=== PATIENT | male | born 1995 | race Caucasian/White ===

== ENCOUNTER 2016-09-03 13:11 | Inpatient (IN) | payer OTHER ==
[~2016-09-03] VITALS: Ht 185.4 cm; Wt 66.3 kg
--- NOTE | 2016-09-03 14:10 | DIAGNOSTIC IMAGING REPORT ---
PROCEDURE: XR CHEST 2 VIEW INDICATION: SHORTNESS OF BREATH TECHNIQUE: PA and lateral views. COMPARISON: None available FINDINGS: Diffuse bilateral pulmonary infiltrates. Heart and mediastinum are normal. Thorax is normal. IMPRESSION: 1. Diffuse bilateral pulmonary infiltrates.
--- NOTE | 2016-09-03 16:31 | DIAGNOSTIC IMAGING REPORT ---
PROCEDURE: CTA THORAX WITH CONTRAST INDICATION: Shortness of breath times 1 week TECHNIQUE: 80 ml of Isovue 370 was injected intravenously and axial images were obtained of the entire thorax with 3D sagittal and coronal MIP reconstructions. COMPARISON: Chest x-ray 09/03/2016 FINDINGS: Somewhat suboptimal opacification of the pulmonary arteries with some breathing artifacts. There is decreased filling of some of the left lower lobe pulmonary artery branches, probably due to artifacts rather than small emboli. Dense consolidation in the posterior aspect of both upper lobes and superior segments of both lower lobes suspicious for aspiration pneumonia. There are also multiple rounded opacities, primarily in the right middle and right lower lobes suspicious for pulmonary emboli. No cavitating lesions. Tiny bilateral pleural effusions. Moderate anterior mediastinal, subcarinal and bilateral hilar adenopathy, reactive. Normal thoracic aorta without dissection or aneurysm. Normal heart size and there is no pericardial effusion. Left renal cysts. Bones are unremarkable. IMPRESSION: 1. Suboptimal opacification of some of the left lower lobe pulmonary branches, likely secondary to artifacts. Pulmonary emboli are less likely 2. Extensive bilateral infiltrates suggestive of aspiration pneumonia 3. Multiple rounded pulmonary opacities suspicious for septic emboli 4. Tiny bilateral pleural effusions
--- NOTE | 2016-09-03 17:27 | ED CLINICAL REPORT ---
Clinical Report - Physicians/Mid Levels [facility] [address] [place] [address] 09/03/2016 13:12 Patient: LAURA KNOTT Time Seen: 13:34; initial patient contact. Arrived- By private vehicle. Historian- patient. HISTORY OF PRESENT ILLNESS Chief Complaint: COUGH. This started about 1 week ago and is still present and worsening. It was gradual in onset and has been constant. The illness is described as moderate. The patient has had a cough, chest discomfort, difficulty breathing, fever and chills. No sputum production, chest pain, muscle aches or nasal congestion or discharge. Additional history - No known contact with a sick individual. No recent travel. Similar symptoms previously: None. Recent medical care: Not recently seen/assessed. REVIEW OF SYSTEMS No headache, nausea, vomiting or diarrhea. All systems otherwise negative, except as recorded above. PAST HISTORY Laceration. SURGERIES: Splenectomy. Medications: None. Allergies: None. SOCIAL HISTORY Current every day smoker. History of IV drug use: heroin, methamphetamines. No alcohol use. No recent travel. ADDITIONAL NOTES The nursing notes have been reviewed with agreement regarding the chief complaint, PMH and patient medications and allergies. PHYSICAL EXAM Vital Signs: 09/03/2016 13:22 BP: 94/61. HR: 121. RR: 18. O2 saturation: 96%. Temp: 99 F. Pain level now: 7/10. Have been reviewed. Hypotensive. Tachycardic. Respiratory rate normal. Temperature normal. Oxygen saturation normal. Appearance: Alert. No acute distress. Eyes: No scleral icterus or pale conjunctivae. ENT: Dry mucous membranes present. CVS: Normal heart rate and rhythm. Heart sounds normal. Respiratory: Mild respiratory distress with accessory muscle use. Moderate bilateral rhonchi present diffusely. Mild rales present diffusely in both lungs. No wheezes or prolonged expiration. Abdomen: Soft and nontender. Skin: Skin warm and dry. Normal skin color. No rash. Extremities: No lower extremity edema. Neuro: Oriented X 3. LABS, X-RAYS, AND EKG Chest X-ray: Diffuse infiltrate in the right upper lobe, right middle lobe and right lower lobe and left upper lobe and left lower lobe. Consistent with pneumonia. Normal heart size. Mediastinum normal. Great vessels normal. Views: PA and lateral. Technique: good. The X-rays were independently viewed by me and interpreted contemporaneously by me. Prior films were not available for comparison. Interpretation time: 14:30. Laboratory Tests: CBC w Diff: (TALIB: 09/03/2016 14:11) ( [facility] [place] 09/03/2016 14:19) Final results Test Result Flag Units (Reference) WHITE BLOOD COUNT 21.6 H K/uL (4.5-11.5) RED BLOOD COUNT 4.56 M/uL (4.50-5.90) HEMOGLOBIN 13.7 gm/dL (13.5-17.5) HEMATOCRIT 41.5 % (41.0-53.0) MEAN CELL VOLUME 91 fL (80-100) MEAN CORPUSCULAR HGB 30 pg (26-34) MEAN CORPUSCULAR HGB CONC 33 g/dL (31-37) RED CELL DISTRIBUTION WIDTH 12.6 % (11.6-14.8) PLATELET COUNT 394 K/uL (150-400) NEUTROPHIL % 77.9 H % (50-75) LYMPH % 9.5 L % (25-40) MONO % 12.4 % (3-14) EOSINOPHIL % 0 % (0-4) BASOPHIL % 0.2 % (0-2) [id number]: (TALIB: 09/03/2016 14:11) ( [facility] 09/03/2016 15:09) Final results Test Result Flag Units (Reference) D-DIMER QUANTITATIVE 4.65 *H ug/mLFEU (0.27-0.52) CRITICAL RESULTS CALLEDCalled to BARTOLOME NAQVI RN 09/03/16 1509Were 2 patient identifiers used? YWas the result read back? YThe primary value of this quantitative assay relates toits negative predictive value (i.e. exclusion) of pulmonaryembolism/deep vein thrombosis/DIC.Elevated levels of d-dimer may also occur with:, age, cancer, inflammation, liver disease,post-op, infection, hematoma, coronary disease, peripheralarteriopathy, bleeding disorders and thrombolytic treatment.Results should be correlated with other clinical andradiological data.Testing Methodology: Latex Immunoassay [id number]: (TALIB: 09/03/2016 14:25) ( MsgRcvd 09/03/2016 15:07) Final results Test Result Flag Units (Reference) LACTIC ACID SEPSIS PROTOCOL 1.0 mmol/L (0.4-2.0) [id number]: (TALIB: 09/03/2016 14:11) ( MsgRcvd 09/03/2016 15:13) Final results Test Result Flag Units (Reference) HIV-1 P24 ANTIGEN NEGATIVE (NEGATIVE) HIV-1 AND OR HIV-2 ANTIBODY NEGATIVE (NEGATIVE) PROCALCITONIN 0.9 H ng/mL (0-0.5) PCT Concentration: Interpretation : Risk/option for action PCT <=0.5 ng/mL : Systemic : Low risk forinfection(sepsis): progression to severeis not likely. : systemic infection.Local bacterial : CAUTION-PCT levelsinfection is : below 0.5 ng/mL do notpossible. : exclude an infection,because localizedinfections (withoutsystemic signs) may beassociated with suchlow levels. If PCT ismeasured very earlyafter a bacterialchallenge (usually <6hours), these valuesmay still be low. Inthis case PCT shouldbe re-assessed 6-24hours later. PCT >0.5 and : Systemic infection: Moderate risk for<= 2 ng/mL : (sepsis) is : progression to severepossible, but : systemic infection.other conditions : The patient should beare known to : closely monitoredelevate PCT. : both clinically andby re-assessing PCTwithin 6-24 hours. PCT > 2 ng/mL : Systemic infection: High risk for(sepsis) is likely: progression to severeunless other : systemic infection.causes are known. : PCT >= 10 ng/mL : Important systemic: High likelihood ofinflammatory : severe sepsis orresponse, almost : septic shock.exclusively due to:severe bacterial :sepsis or septic :shock. : CMP: (TALIB: 09/03/2016 14:11) ( MsgRcvd 09/03/2016 14:36) Final results Test Result Flag Units (Reference) GLUCOSE 117 H mg/dL (70-110) BUN 5 L mg/dL (7-18) CREATININE 0.7 mg/dL (0.6-1.3) Estimated GFR >60 mL/min Estimated GFR- >60 mL/min Note: Persistent reduction over 3 months in eGFR<60 mL/min/1.73 m2 defines CKD. Patients with eGFR values>=60 mL/min/1.73 m2 may also have CKD if evidence ofpersistent proteinuria. Additional information may be foundat www.[email or web address].org. SODIUM 133 L mmol/L (136-145) POTASSIUM 3.4 L mmol/L (3.5-5.1) CHLORIDE 96 L mmol/L (98-107) CARBON DIOXIDE 25 mmol/L (21-32) CALCIUM 8.7 mg/dL (8.5-10.1) TOTAL PROTEIN 6.9 g/dL (6.4-8.2) ALBUMIN 2.4 L g/dL (3.3-5.0) BILIRUBIN, TOTAL 0.8 mg/dL (0.0-1.0) ALKALINE PHOSPHATASE 165 H U/L (46-116) AST (SGOT) 55 H U/L (15-37) ALT (SGPT) 56 U/L (12-78) ABG: (TALIB: 09/03/2016 16:18) ( MsgRcvd 09/03/2016 16:30) Final results Test Result Flag Units (Reference) FIO2 32 % (20-101) ABG MODE OF DELIVERY NC MODIFIED DEANDRE TEST POSITIVE? YES LITERS PER MIN. 3 L/MIN (0-20) ARTERIAL BLOOD GAS SITE RR ARTERIAL BLOOD GAS pH 7.47 H (7.35-7.45) ABG PCO2 36.6 mmHg (35-45) ABG PO2 66.3 L mmHg (80.0-100.0) ABG BASE EXCESS 2.4 H mmol/L (-6.0--6.0) ABG HCO3 26.3 H mmol/L (20.0-26.0) ABG TCO2 27.4 mmol/L (24.0-30.0) ABG [id number] 120.5 H mmHg (7.0-14.0) *NOTE: Normal rangeis based on aFIO2 of 21% ABG SAT O2 94.5 L % (95.1-100.0) ABG TOTAL HEMOGLOBIN 11.9 L g/dL (14.0-18.0) ABG O2 HEMOGLOBIN 93.0 L % (95.0-100.0) ABG CARBOXYHEMOGLOBIN 1.4 % (0.5-1.5) ABG METHEMOGLOBIN 0.2 L % (0.4-1.5) ABG RHEMOGLOBIN 5.4 % . PROGRESS AND PROCEDURES Critical care performed (90 minutes). Time includes: direct patient care, patient reassessment, coordination of patient care, interpretation of data (laboratory data, pulse oximetry, arterial blood gases and chest xrays), medical consultation and documentation of patient care. The patient required critical care due to the acute impairment of vital organ systems (respiratory and immunologic) and a high probability of imminent deterioration. Multiple urgent interventions were required to prevent sudden deterioration. Discussed case with hospitalist, (call returned 17:15 Dr. Morrison. Admit to the ICU). Health care provider will see patient in hospital. Disposition: Condition: stable. CLINICAL IMPRESSION 09/03/2016 17:26 BP: 123/67. HR: 104. O2 saturation: 96%. Vital Signs: have been reviewed. Blood pressure normal. Tachycardic. Oxygen saturation normal. Bacterial pneumonia with hypoxemia and sepsis. Sepsis. Moderate leukocytosis with bandemia. (Electronically signed by Rodney Bhatt Dr. 09/03/2016 18:36)
--- NOTE | 2016-09-03 17:27 | ED ORDER SUMMARY ---
..... Patient: LAURA KNOTT OrderSheet [facility] VisitID: [id number] [address] [place] [address] 21y, M Registration Date/Time: 09/03/2016 ORDER SHEET Weight: 65.7 kg (stated) Allergies: None GENERAL ORDERS: Chest 2V Urgent (13:55 09/03/2016 Minoo Kumar) (Ack 13:56 IJurca ER Tech1) (14:40 LSullivan R.N.) CBC w Diff Urgent (13:55 09/03/2016 Minoo Kumar) (Ack 13:56 IJurca ER Tech1) (14:14 ASckenjiuck) CMP Urgent (13:55 09/03/2016 Minoo Kumar) (Ack 13:56 IJurca ER Tech1) (14:15 ASchmsharee) D-Dimer Urgent (13:55 09/03/2016 Minoo Kumar) (Ack 13:56 IJurca ER Tech1) (14:15 ASchmuck) Blood Culture (No) (N/A) Urgent (14:10 09/03/2016 Minoo Kumar) (Ack 14:15 IJurca ER Tech1) (Sent 14:30 IJurca ER Tech1) (14:40 LSullivan R.N.) Lactic Acid for Sepsis Protocol Urgent (14:11 09/03/2016 Minoo uKmar) (Ack 14:15 IJurca ER Tech1) (Sent 14:30 IJurca ER Tech1) (14:40 LSullivan R.N.) PCT (Procalcitonin) Urgent (14:11 09/03/2016 Minoo Kumar) (14:14 ASchmsharee) (Ack 14:15 IJurca ER Tech1) HIV I and II Urgent (14:11 09/03/2016 Minoo Kumar) (14:14 ASchmuck) (Ack 14:15 IJurca ER Tech1) CTA Thorax w Cont (No) (5/0.7) Urgent (15:24 09/03/2016 Minoo Kumar) (Ack 15:26 IJurca ER Tech1) (16:03 MCaartemiobell) ABG (G) Urgent (16:18 09/03/2016 Minoo Kumar) (Ack 16:19 IJurca ER Tech1) (16:49 [facility]) MEDICATION ORDERS: IV FLUIDS: IV Saline Lock (13:55 09/03/2016 Minoo Kumar) (14:15 ASchmuck) IV NS : initial bolus 1000 mL (1000 mL/hr), then 1000 mL/hr for X1 (NOW) (14:24 09/03/2016 Minoo Kumar) (14:39 LSullivan R.N.) Zosyn IV 4.5 gm/100mL (NOW) (15:28 09/03/2016 Minoo Kumar) (Ack 15:30 ASchmuck) (17:58 ASchmuck) Levofloxacin IV 750 mg/150 mL (NOW) (15:28 09/03/2016 Minoo Kumar) (Ack 15:30 ASchmuck) (15:43 ASchmuck) ORDER SHEET NOTES: [Electronically signed by Rodney Bhatt Dr. (18:36 09/03/2016)] [Electronically signed by Maddy Castañeda (10:50 09/04/2016)] [Electronically locked/signed by Maddy Castañeda (10:50 09/04/2016)]
--- NOTE | 2016-09-03 17:27 | ED ORDER SUMMARY ---
..... Patient: LAURA KNOTT OrderSheet [facility] VisitID: [id number] [address] [place] [address] 21y, M Registration Date/Time: 09/03/2016 ORDER SHEET Weight: 65.7 kg (stated) Allergies: None GENERAL ORDERS: Chest 2V Urgent (13:55 09/03/2016 Minoo Kumar) (Ack 13:56 IJurca ER Tech1) (14:40 LSullivan R.N.) CBC w Diff Urgent (13:55 09/03/2016 Minoo Kumar) (Ack 13:56 IJurca ER Tech1) (14:14 ASckenjiuck) CMP Urgent (13:55 09/03/2016 Minoo Kumar) (Ack 13:56 IJurca ER Tech1) (14:15 ASchmsharee) D-Dimer Urgent (13:55 09/03/2016 Minoo Kumar) (Ack 13:56 IJurca ER Tech1) (14:15 ASchmuck) Blood Culture (No) (N/A) Urgent (14:10 09/03/2016 Minoo Kumar) (Ack 14:15 IJurca ER Tech1) (Sent 14:30 IJurca ER Tech1) (14:40 LSullivan R.N.) Lactic Acid for Sepsis Protocol Urgent (14:11 09/03/2016 Minoo Kumar) (Ack 14:15 IJurca ER Tech1) (Sent 14:30 IJurca ER Tech1) (14:40 LSullivan R.N.) PCT (Procalcitonin) Urgent (14:11 09/03/2016 Minoo Kumar) (14:14 ASchmsharee) (Ack 14:15 IJurca ER Tech1) HIV I and II Urgent (14:11 09/03/2016 Minoo Kumar) (14:14 ASchmuck) (Ack 14:15 IJurca ER Tech1) CTA Thorax w Cont (No) (5/0.7) Urgent (15:24 09/03/2016 Minoo Kumar) (Ack 15:26 IJurca ER Tech1) (16:03 MCaartemiobell) ABG (G) Urgent (16:18 09/03/2016 Minoo Kumar) (Ack 16:19 IJurca ER Tech1) (16:49 [facility]) MEDICATION ORDERS: IV FLUIDS: IV Saline Lock (13:55 09/03/2016 Minoo Kumar) (14:15 ASchmuck) IV NS : initial bolus 1000 mL (1000 mL/hr), then 1000 mL/hr for X1 (NOW) (14:24 09/03/2016 Minoo Kumar) (14:39 LSullivan R.N.) Zosyn IV 4.5 gm/100mL (NOW) (15:28 09/03/2016 Minoo Kumar) (Ack 15:30 ASchmuck) (17:58 ASchmuck) Levofloxacin IV 750 mg/150 mL (NOW) (15:28 09/03/2016 Minoo Kumar) (Ack 15:30 ASchmuck) (15:43 ASchmuck) ORDER SHEET NOTES: [Electronically signed by Rodney Bhatt Dr. (18:36 09/03/2016)] [Electronically signed by Maddy Castañeda (10:50 09/04/2016)] [Electronically locked/signed by Maddy Castañeda (10:50 09/04/2016)]
--- NOTE | 2016-09-03 17:27 | ED CLINICAL REPORT ---
Clinical Report - Physicians/Mid Levels [facility] [address] [place] [address] 09/03/2016 13:12 Patient: LAURA KNOTT Time Seen: 13:34; initial patient contact. Arrived- By private vehicle. Historian- patient. HISTORY OF PRESENT ILLNESS Chief Complaint: COUGH. This started about 1 week ago and is still present and worsening. It was gradual in onset and has been constant. The illness is described as moderate. The patient has had a cough, chest discomfort, difficulty breathing, fever and chills. No sputum production, chest pain, muscle aches or nasal congestion or discharge. Additional history - No known contact with a sick individual. No recent travel. Similar symptoms previously: None. Recent medical care: Not recently seen/assessed. REVIEW OF SYSTEMS No headache, nausea, vomiting or diarrhea. All systems otherwise negative, except as recorded above. PAST HISTORY Laceration. SURGERIES: Splenectomy. Medications: None. Allergies: None. SOCIAL HISTORY Current every day smoker. History of IV drug use: heroin, methamphetamines. No alcohol use. No recent travel. ADDITIONAL NOTES The nursing notes have been reviewed with agreement regarding the chief complaint, PMH and patient medications and allergies. PHYSICAL EXAM Vital Signs: 09/03/2016 13:22 BP: 94/61. HR: 121. RR: 18. O2 saturation: 96%. Temp: 99 F. Pain level now: 7/10. Have been reviewed. Hypotensive. Tachycardic. Respiratory rate normal. Temperature normal. Oxygen saturation normal. Appearance: Alert. No acute distress. Eyes: No scleral icterus or pale conjunctivae. ENT: Dry mucous membranes present. CVS: Normal heart rate and rhythm. Heart sounds normal. Respiratory: Mild respiratory distress with accessory muscle use. Moderate bilateral rhonchi present diffusely. Mild rales present diffusely in both lungs. No wheezes or prolonged expiration. Abdomen: Soft and nontender. Skin: Skin warm and dry. Normal skin color. No rash. Extremities: No lower extremity edema. Neuro: Oriented X 3. LABS, X-RAYS, AND EKG Chest X-ray: Diffuse infiltrate in the right upper lobe, right middle lobe and right lower lobe and left upper lobe and left lower lobe. Consistent with pneumonia. Normal heart size. Mediastinum normal. Great vessels normal. Views: PA and lateral. Technique: good. The X-rays were independently viewed by me and interpreted contemporaneously by me. Prior films were not available for comparison. Interpretation time: 14:30. Laboratory Tests: CBC w Diff: (TALIB: 09/03/2016 14:11) ( [facility] [place] 09/03/[place] 14:19) Final results Test Result Flag Units (Reference) WHITE BLOOD COUNT 21.6 H K/uL (4.5-11.5) RED BLOOD COUNT 4.56 M/uL (4.50-5.90) HEMOGLOBIN 13.7 gm/dL (13.5-17.5) HEMATOCRIT 41.5 % (41.0-53.0) MEAN CELL VOLUME 91 fL (80-100) MEAN CORPUSCULAR HGB 30 pg (26-34) MEAN CORPUSCULAR HGB CONC 33 g/dL (31-37) RED CELL DISTRIBUTION WIDTH 12.6 % (11.6-14.8) PLATELET COUNT 394 K/uL (150-400) NEUTROPHIL % 77.9 H % (50-75) LYMPH % 9.5 L % (25-40) MONO % 12.4 % (3-14) EOSINOPHIL % 0 % (0-4) BASOPHIL % 0.2 % (0-2) [id number]: (TALIB: 09/03/2016 14:11) ( [facility] [place] 09/03/2016 15:09) Final results Test Result Flag Units (Reference) D-DIMER QUANTITATIVE 4.65 *H ug/mLFEU (0.27-0.52) CRITICAL RESULTS CALLEDCalled to BARTOLOME NAQVI RN 09/03/16 1509Were 2 patient identifiers used? YWas the result read back? YThe primary value of this quantitative assay relates toits negative predictive value (i.e. exclusion) of pulmonaryembolism/deep vein thrombosis/DIC.Elevated levels of d-dimer may also occur with:, age, cancer, inflammation, liver disease,post-op, infection, hematoma, coronary disease, peripheralarteriopathy, bleeding disorders and thrombolytic treatment.Results should be correlated with other clinical andradiological data.Testing Methodology: Latex Immunoassay [id number]: (TALIB: 09/03/2016 14:25) ( MsgRcvd 09/03/2016 15:07) Final results Test Result Flag Units (Reference) LACTIC ACID SEPSIS PROTOCOL 1.0 mmol/L (0.4-2.0) [id number]: (TALIB: 09/03/2016 14:11) ( MsgRcvd 09/03/2016 15:13) Final results Test Result Flag Units (Reference) HIV-1 P24 ANTIGEN NEGATIVE (NEGATIVE) HIV-1 AND OR HIV-2 ANTIBODY NEGATIVE (NEGATIVE) PROCALCITONIN 0.9 H ng/mL (0-0.5) PCT Concentration: Interpretation : Risk/option for action PCT <=0.5 ng/mL : Systemic : Low risk forinfection(sepsis): progression to severeis not likely. : systemic infection.Local bacterial : CAUTION-PCT levelsinfection is : below 0.5 ng/mL do notpossible. : exclude an infection,because localizedinfections (withoutsystemic signs) may beassociated with suchlow levels. If PCT ismeasured very earlyafter a bacterialchallenge (usually <6hours), these valuesmay still be low. Inthis case PCT shouldbe re-assessed 6-24hours later. PCT >0.5 and : Systemic infection: Moderate risk for<= 2 ng/mL : (sepsis) is : progression to severepossible, but : systemic infection.other conditions : The patient should beare known to : closely monitoredelevate PCT. : both clinically andby re-assessing PCTwithin 6-24 hours. PCT > 2 ng/mL : Systemic infection: High risk for(sepsis) is likely: progression to severeunless other : systemic infection.causes are known. : PCT >= 10 ng/mL : Important systemic: High likelihood ofinflammatory : severe sepsis orresponse, almost : septic shock.exclusively due to:severe bacterial :sepsis or septic :shock. : CMP: (TALIB: 09/03/2016 14:11) ( MsgRcvd 09/03/2016 14:36) Final results Test Result Flag Units (Reference) GLUCOSE 117 H mg/dL (70-110) BUN 5 L mg/dL (7-18) CREATININE 0.7 mg/dL (0.6-1.3) Estimated GFR >60 mL/min Estimated GFR- >60 mL/min Note: Persistent reduction over 3 months in eGFR<60 mL/min/1.73 m2 defines CKD. Patients with eGFR values>=60 mL/min/1.73 m2 may also have CKD if evidence ofpersistent proteinuria. Additional information may be foundat [email or web address].org. SODIUM 133 L mmol/L (136-145) POTASSIUM 3.4 L mmol/L (3.5-5.1) CHLORIDE 96 L mmol/L (98-107) CARBON DIOXIDE 25 mmol/L (21-32) CALCIUM 8.7 mg/dL (8.5-10.1) TOTAL PROTEIN 6.9 g/dL (6.4-8.2) ALBUMIN 2.4 L g/dL (3.3-5.0) BILIRUBIN, TOTAL 0.8 mg/dL (0.0-1.0) ALKALINE PHOSPHATASE 165 H U/L (46-116) AST (SGOT) 55 H U/L (15-37) ALT (SGPT) 56 U/L (12-78) ABG: (TALIB: 09/03/2016 16:18) ( MsgRcvd 09/03/2016 16:30) Final results Test Result Flag Units (Reference) FIO2 32 % (20-101) ABG MODE OF DELIVERY NC MODIFIED DEANDRE TEST POSITIVE? YES LITERS PER MIN. 3 L/MIN (0-20) ARTERIAL BLOOD GAS SITE RR ARTERIAL BLOOD GAS pH 7.47 H (7.35-7.45) ABG PCO2 36.6 mmHg (35-45) ABG PO2 66.3 L mmHg (80.0-100.0) ABG BASE EXCESS 2.4 H mmol/L (-6.0--6.0) ABG HCO3 26.3 H mmol/L (20.0-26.0) ABG TCO2 27.4 mmol/L (24.0-30.0) ABG [id number] 120.5 H mmHg (7.0-14.0) *NOTE: Normal rangeis based on aFIO2 of 21% ABG SAT O2 94.5 L % (95.1-100.0) ABG TOTAL HEMOGLOBIN 11.9 L g/dL (14.0-18.0) ABG O2 HEMOGLOBIN 93.0 L % (95.0-100.0) ABG CARBOXYHEMOGLOBIN 1.4 % (0.5-1.5) ABG METHEMOGLOBIN 0.2 L % (0.4-1.5) ABG RHEMOGLOBIN 5.4 % . PROGRESS AND PROCEDURES Critical care performed (90 minutes). Time includes: direct patient care, patient reassessment, coordination of patient care, interpretation of data (laboratory data, pulse oximetry, arterial blood gases and chest xrays), medical consultation and documentation of patient care. The patient required critical care due to the acute impairment of vital organ systems (respiratory and immunologic) and a high probability of imminent deterioration. Multiple urgent interventions were required to prevent sudden deterioration. Discussed case with hospitalist, (call returned 17:15 Dr. Morrison. Admit to the ICU). Health care provider will see patient in hospital. Disposition: Condition: stable. CLINICAL IMPRESSION 09/03/2016 17:26 BP: 123/67. HR: 104. O2 saturation: 96%. Vital Signs: have been reviewed. Blood pressure normal. Tachycardic. Oxygen saturation normal. Bacterial pneumonia with hypoxemia and sepsis. Sepsis. Moderate leukocytosis with bandemia. (Electronically signed by Rondey Bhatt Dr. 09/03/2016 18:36)
--- NOTE | 2016-09-03 17:27 | ED NURSING NOTES ---
Clinical Report - Nurses [facility] [place] [address] 09/03/2016 13:12 Patient: LAURA KNOTT TRIAGE Triage time 13:Sep 03 2016. Acuity: LEVEL 4. Chief Complaint: COUGH. 13:27 09/03/16. Alert. No acute distress. EMILE COMA SCORE: Emile Coma Scale: 15- eyes open spontaneously (4); best verbal response- oriented x 4 (5); best motor response- obeys commands (6). --13:27 Maddy Castañeda 13:22 09/03/16. BP: 94/61. HR: 121. RR: 18. O2 saturation: 96% on room air. Temp: 99 F (oral). Pain level now: 03/15. --13:27 Maddy Castañeda. Weight: 65.7 kg stated. Height/Length: 71 inches Per Patient. BMI: 20.2. --13:25 Maddy Castañeda. Medications None. --13:23 Maddy Castañeda. Medication/allergy information source: the patient. --13:27 Maddy Castañeda. Allergies None. --13:23 Maddy Castañeda. History Arrived by private vehicle. Historian: patient. Accompanied by (Claudio). No primary care physician. Onset. (About a week ago). ( Pt reports he has been coughing up yellow sputum for the past week. Has had a fever (subjective) at home. No known sick contact. Pt states that it has been getting more difficult to breathe.). He has had chest congestion, chills and fatigue. No sinus pain, headache, abdominal pain, vomiting or diarrhea. No known contact with a sick individual. No recent travel. 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 Fever reducers, but not today.). PAST MEDICAL HX: Asthma. Patient is asplenic. No history of pneumonia. Immunizations: status is unknown. SOCIAL HX: Heavy tobacco smoker (cigarette)- 1 pack per day. History of IV drug use: heroin, methamphetamines. Recently used drugs today. No alcohol use. No recent travel. No known contact with a sick individual. FALL RISK ASSESSMENT: Fall risk assessment completed. No fall risk identified. NUTRITIONAL RISK ASSESSMENT: The nutritional risk assessment revealed no deficiencies. FUNCTIONAL ASSESSMENT: Functional assessment: no impairments noted. LEARNING NEEDS ASSESSMENT: The learning needs assessment revealed no barriers. SKIN INTEGRITY ASSESSMENT: Skin integrity risk assessment completed. No skin integrity risk identified. --13:27 Maddy Castañeda. PROBLEMS: Laceration. --13:23 Maddy Castañeda. ADDITIONAL SURGERIES: Splenectomy. --13: Maddy Castañeda. Assessment The patient states feels the same. --13: Maddy Castañeda. Interventions ID band on patient. --13: Maddy Castañeda. PHYSICAL ASSESSMENT 13:09/03/16. Ambulatory to room. Patient gowned. GENERAL / NEURO / PSYCH: Alert. Oriented X 4. Appears in no acute distress. HEENT: Pupils equal, round and reactive to light. Mucous membranes are pink. RESPIRATORY: Respirations not labored. Cough. Chest wall tenderness. CVS: Capillary refill less than 2 seconds. Pulses within normal limits. GI / : Abdomen soft and nontender. SKIN: Skin intact. Skin is warm and dry. Normal skin turgor. --13:28 Maddy Castañeda. NURSING PROGRESS NOTES 13:09/03/16. The plan of care for this patient has been created. Patient gowned. Head of bed elevated. Reassurance given. Two patient identifiers checked. Call light placed in reach. Side rails up x 1. Bed placed in lowest position. Brakes of bed on. Patient ready for evaluation- chart flagged and ED physician and CHANNEL MARKETING COORDINATOR notified. --13:28 Maddy Castañeda 13:09/03/16. HR: 109. O2 saturation: 89% on room air. --13:29 Maddy Castañeda 13:09/03/16. --13: Maddy Castañeda 14:14 09/03/2016 Site #1 started via IV in the right antecubital space with an 20g angiocath, with aseptic technique and good blood return; one attempt. Blood drawn: rainbow set. Labeled in the presence of the patient and sent to the lab. Saline lock flushed with 10 mL saline. --14:14 Maddy Castañeda <<STRICKEN ENTRY-- Checked patient name and birthdate: patient confirmed. Blood samples drawn from the left antecubital space with syringe and 23g butterfly by tech per protocol ; labeled in presence of the patient and sent to lab: rainbow set: blood culture (1st set). --14:33 Phillip Menjivar --END STRIKE>> Correction --15:45 OttoPhillip blackmon 14:39 09/03/2016 Started bag #1 1000 mL IV Fluids IV NS (Saline); at 1000 mL/hr via site #1 via IV pump. Confirmed 5 rights. --14:39 Kristina Zavala R.N. 14:40 09/03/16. BP: 107/59. HR: 103. RR: 18. O2 saturation: 92%. Pain level now: 03/15. --14:40 Kristina Zavala R.N. ( D Dimer 4.65, critical value reported to ERMD). --15:09 Kristina Zavala R.N. 15:36 09/03/16. BP: 112/65. HR: 100. RR: 18. O2 saturation: 94% on nasal cannula at 2 liters/minute. Pain level now: 03/15. --15:37 Maddy Castañeda 15:43 09/03/2016 Started 750 mg of Levofloxacin IVPB in bag #1 150 mL; at 100 mL/hr over 90 minute(s) via site #1 via IV pump. Allergies verified and confirmed 5 rights. IV patency established. IV site checked: no pain, redness, or swelling. IV flushed thoroughly pre- and post-medication administration. --15:43 Maddy Castañeda 15:43 09/03/2016 IV Fluids IV NS Bag Change: bag #1 infused. Total amount infused: 1000. STARTED bag #2 (1000 mL) at 1000 mL/hr via IV pump. Confirmed 5 rights. IV patency established. IV site checked: no pain, redness, or swelling. IV flushed thoroughly. --15:43 Maddy Castañeda Checked patient name and birthdate: patient confirmed. Blood samples drawn from the left antecubital space with syringe and 23g butterfly by tech per protocol ; labeled in presence of the patient and sent to lab: dumont top; blood culture (1st set). --15:46 Phillip Menjivar 16:27 09/03/16. BP: 115/68. HR: 95. O2 saturation: 96%. --16:27 Maddy Castañeda 17:26 09/03/16. --17:26 Maddy Castañeda 17:26 09/03/16. BP: 123/67. HR: 104. O2 saturation: 96% on nasal cannula at 2 liters/minute. --17:26 Maddy Castañeda 16:45 09/03/2016 IV Fluids IV NS Discontinued: bag #2 infused. Total amount infused: 1000 mL. --19:23 Maddy Castañeda 17:37 09/03/2016 Levofloxacin IVPB Discontinued: bag #1 infused. Total amount infused: 150 mL. --17:57 Maddy Castañeda 17:38 09/03/2016 Started 4.5 gm of Zosyn (Piperacillin Sod-Tazobactam So) IVPB in bag #1 100 mL; at 100 mL/hr over 1 hour(s) via site #1 via IV pump. Allergies verified and confirmed 5 rights. IV patency established. IV site checked: no pain, redness, or swelling. IV flushed thoroughly pre- and post-medication administration. --17:58 aMddy Castañeda 18:38 09/03/2016 Zosyn IVPB Discontinued: bag #1 infused. Total amount infused: 100 mL. --19:24 Maddy Castañeda 19:11 09/03/16. Care transferred and report received (report from TRACIE Castañeda). --19:11 Carlene Galvez R.N. 19:23 09/03/2016 IV Saline Lock Drip IV Continued: upon admission at the rate of 0 mL/hr. 0 mL remaining. --19:23 Maddy Castañeda 19:24 09/03/2016 Site #[address] upon admission; patent, no pain and no signs of infection or infiltration; flushes easily. --19:24 Maddy Castañeda. DISPOSITION / DISCHARGE The goals identified in the patient's plan of care were met. Admitted to the Critical Care Unit. Transported via stretcher by nurse with monitor and IV. Report was given to a nurse via a phone call. Report included patient's care, treatment, medications, reviewed medication reconcilliation, and condition (including any recent changes or anticipated changes). All questions were answered. Report was acknowledged and care was transferred. Bed obtained (ready in 15 minutes). Patient's personal items; items were placed in belongings bag and given to the patient. FALL RISK ASSESSMENT: Fall risk assessment completed. No fall risk identified. --19:19 Maddy Castañeda 19:16 09/03/16. BP: 119/59 taken while sitting. HR: 96. RR: 20. O2 saturation: 95% on nasal cannula at 2 liters/minute. Temp: 99.3 F. Pain level now: 03/15. --19:19 Maddy Castañeda. Locked/Released at 09/04/2016 10:50 by Maddy Castañeda,
[2016-09-03 20:18] VITALS: BP 110/56
[2016-09-03 21:07] VITALS: BP 117/59
[2016-09-03 22:08] VITALS: BP 117/64
[2016-09-03 23:09] VITALS: BP 128/78
[2016-09-04] VITALS (24 sets, daily range): BP systolic 108–153; BP diastolic 50–95
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
--- NOTE | 2016-09-04 10:51 | ED MAR SUMMARY ---
..... Medication Administration Record [facility] [address] [place] [address] Patient: LAURA KNOTT Visit ID: [id number] 21y, M Weight: 65.7 kg Height/Length: 71 in BMI: 20.2 ALLERGIES: None Start 14:39 09/03/2016 Kristina Zavala R.N., Stop 16:45 09/03/2016 Maddy Castañeda, Medication Administered: IV NS (SALINE), Dose: IV Fluids, Rate: 1000 mL/hr, Dispensed: 1000 mL bag, Site: #1 right AC. Medication Ordered: IV NS : initial bolus 1000 mL (1000 mL/hr), then 1000 mL/hr for X1 (NOW). Start 15:43 09/03/2016 Maddy Castañeda,, Stop 17:37 09/03/2016 Maddy Castañeda, Medication Administered: LEVOFLOXACIN [IVPB], Dose: 750 mg IVPB over 90 minute(s), Rate: 100 mL/hr, Dispensed: 150 mL bag, Site: #1 right AC. Medication Ordered: Levofloxacin IV 750 mg/150 mL (NOW). Start 17:38 09/03/2016 Maddy Castañeda,, Stop 18:38 09/03/2016 Maddy Castañeda, Medication Administered: ZOSYN [IVPB] (PIPERACILLIN SOD-TAZOBACTAM SO), Dose: 4.5 gm IVPB over 1 hour(s), Rate: 100 mL/hr, Dispensed: 100 mL bag, Site: #1 right AC. Medication Ordered: Zosyn IV 4.5 gm/100mL (NOW).
--- NOTE | 2016-09-04 10:51 | ED MED RECONCILIATION SUMMARY ---
Patient: LAURA KNOTT Medication Reconciliation Report [facility] VisitID: [id number] [address] [place] [address] 21y, M Registration Date/Time: 09/03/2016 Weight: 65.7 kg Height/Length: 71 in. BMI: 20.2 ALLERGIES: None The patient's Home Medications are listed below: NONE. The source(s) of the original Home Medication information: patient The following Medications were given to the patient in the Emergency Department: IV NS IV Fluids bolus 0, then 1000 mL/hr, administered: 09/03/2016 2:39:00 PM Levofloxacin [IVPB] IVPB bolus 0, then 750 mg 100 mL/hr, administered: 09/03/2016 3:43:00 PM Zosyn [IVPB] IVPB bolus 0, then 4.5 gm 100 mL/hr, administered: 09/03/2016 5:38:00 PM The following Medications were prescribed to the patient: None.
--- NOTE | 2016-09-04 10:51 | ED DISCHARGE INSTRUCTIONS ---
Patient: LAURA KNOTT General Instructions [facility] VisitID: [id number] [address] [place] [address] 21y, M Registration Date/Time: 09/03/2016 09/03/2016 17:26 BP: 123/67. HR: 104. O2 saturation: 96%. Vital Signs: have been reviewed. Blood pressure normal. Tachycardic. Oxygen saturation normal. Bacterial pneumonia with hypoxemia and sepsis. Sepsis. Moderate leukocytosis with bandemia. (Electronically signed by Rodney Bhatt Dr. 09/03/2016 18:36)
--- NOTE | 2016-09-04 10:51 | ED MAR SUMMARY ---
..... Medication Administration Record [facility] [address] [place] [address] Patient: LAURA KNOTT Visit ID: [id number] 21y, M Weight: 65.7 kg Height/Length: 71 in BMI: 20.2 ALLERGIES: None Start 14:39 09/03/2016 Kristina Zavala R.N., Stop 16:45 09/03/2016 Maddy Castañeda, Medication Administered: IV NS (SALINE), Dose: IV Fluids, Rate: 1000 mL/hr, Dispensed: 1000 mL bag, Site: #1 right AC. Medication Ordered: IV NS : initial bolus 1000 mL (1000 mL/hr), then 1000 mL/hr for X1 (NOW). Start 15:43 09/03/2016 Maddy Castañeda,, Stop 17:37 09/03/2016 Maddy Castañeda, Medication Administered: LEVOFLOXACIN [IVPB], Dose: 750 mg IVPB over 90 minute(s), Rate: 100 mL/hr, Dispensed: 150 mL bag, Site: #1 right AC. Medication Ordered: Levofloxacin IV 750 mg/150 mL (NOW). Start 17:38 09/03/2016 Maddy Castañeda,, Stop 18:38 09/03/2016 Maddy Castañeda, Medication Administered: ZOSYN [IVPB] (PIPERACILLIN SOD-TAZOBACTAM SO), Dose: 4.5 gm IVPB over 1 hour(s), Rate: 100 mL/hr, Dispensed: 100 mL bag, Site: #1 right AC. Medication Ordered: Zosyn IV 4.5 gm/100mL (NOW).
--- NOTE | 2016-09-04 10:51 | ED DISCHARGE INSTRUCTIONS ---
Patient: LAURA KNOTT General Instructions [facility] VisitID: [id number] [address] [place] [address] 21y, M Registration Date/Time: 09/03/2016 09/03/2016 17:26 BP: 123/67. HR: 104. O2 saturation: 96%. Vital Signs: have been reviewed. Blood pressure normal. Tachycardic. Oxygen saturation normal. Bacterial pneumonia with hypoxemia and sepsis. Sepsis. Moderate leukocytosis with bandemia. (Electronically signed by Rodney Bhatt Dr. 09/03/2016 18:36)
--- NOTE | 2016-09-04 10:51 | ED MED RECONCILIATION SUMMARY ---
Patient: LAURA KNOTT Medication Reconciliation Report [facility] VisitID: [id number] [address] [place] [address] 21y, M Registration Date/Time: 09/03/2016 Weight: 65.7 kg Height/Length: 71 in. BMI: 20.2 ALLERGIES: None The patient's Home Medications are listed below: NONE. The source(s) of the original Home Medication information: patient The following Medications were given to the patient in the Emergency Department: IV NS IV Fluids bolus 0, then 1000 mL/hr, administered: 09/03/2016 2:39:00 PM Levofloxacin [IVPB] IVPB bolus 0, then 750 mg 100 mL/hr, administered: 09/03/2016 3:43:00 PM Zosyn [IVPB] IVPB bolus 0, then 4.5 gm 100 mL/hr, administered: 09/03/2016 5:38:00 PM The following Medications were prescribed to the patient: None.
--- NOTE | 2016-09-04 14:27 | Progress Note ---
Subjective General Pt states he is starting to feel somewhat better. He continues to complain of shortness of breath however. He denies any fever overnight. RN reports pts BP is much more stable now with IV fluids. No other complaints or concerns at this time. Physical Exam Vital Signs / I&Os Vital Signs Date Time Temp Pulse Resp B/P Pulse O2 O2 Flow FiO2 Ox Delivery Rate 09/04 1409 97.9 94 30 123/72 97 Nasal 4.0 Cannula 09/04 1300 94 36 119/67 96 Nasal 4.0 Cannula 09/04 1200 85 34 128/77 98 Nasal 4.0 Cannula 09/04 1100 85 38 128/70 98 Nasal 4.0 Cannula 09/04 1000 99.5 84 33 153/85 95 Nasal 5.0 Cannula 09/04 0900 96 31 147/61 97 Nasal 5.0 Cannula 09/04 0800 Nasal 5.0 Cannula 09/04 0800 90 34 112/95 96 Nasal 5.0 Cannula 09/04 0753 86 40 143/77 96 Nasal 5.0 Cannula 09/04 0600 96 49 108/72 96 Nasal 5.0 Cannula 09/04 0500 76 38 120/66 96 Nasal 5.0 Cannula 09/04 0435 97.9 09/04 0400 85 36 123/69 96 Nasal 4.0 Cannula 09/04 0300 87 33 123/69 99 Nasal 4.0 Cannula 09/04 0200 98 34 119/50 96 Nasal 4.0 Cannula 09/04 0158 4.0 09/04 0100 100.2 116 37 127/56 96 Nasal 4.5 Cannula 09/04 0008 101 31 117/68 97 Nasal 4.5 Cannula 09/03 2309 98 28 128/78 98 Nasal 2.0 Cannula 09/038 94 34 117/64 97 Nasal 2.0 Cannula 09/03 2138 2.0 09/03 2113 2.0 09/03 2107 103 29 117/59 98 Nasal 2.0 Cannula 09/03 2018 98.8 104 27 110/56 96 Nasal 2.0 Cannula I&O 09/04 0000 09/03 1600 09/03 0800 Intake Total 1340 Output Total 700 Balance 640 Other GENERAL: NAD; Pt laying comfortably in bed HEENT: AT/NC; PERRLA, EOMI; MM Moist CARDIAC: RRR, No M/R/G appreciated PULM: Crackles at bilateral lung bases with scattered wheezes diffusely throughout both lungs ABD: Soft, NT, ND, Positive BS in all quadrants; No hepatosplenomegaly appreciated EXT: No C/C/E in bilateral upper and lower extremity; No calve tenderness bilaterally SKIN: Warm, dry, pink, and intact NEURO: Alert and oriented x3; Following all commands PSYCH: Normal mood and affect LAB Results Laboratory Tests 09/04 09/04 09/03 09/03 0405 0405 1618 1425 Blood Gas Sample Site RR Total CO2 (24.0 - 30.0 mmol/L) 27.4 ABG pH (7.35 - 7.45) 7.47 ABG pCO2 at Pt Temp (35 - 45 mmHg) 36.6 ABG pO2 at Pt Temp (80.0 - 100.0 mmHg) 66.3 ABG HCO3 (20.0 - 26.0 mmol/L) 26.3 ABG O2 Sat Calc/Anty (95.1 - 100.0 %) 94.5 ABG Base Excess (-6.0 - -6.0 mmol/L) 2.4 ABG Reduced Hgb (%) 5.4 ABG Carboxyhemoglobin (0.5 - 1.5 %) 1.4 ABG Methemoglobin (0.4 - 1.5 %) 0.2 Tre Test YES Other Total Hgb (14.0 - 18.0 g/dL) 11.9 A-a O2 Gradient (7.0 - 14.0 mmHg) 120.5 Hgb O2 Saturation (95.0 - 100.0 %) 93.0 O2 Liters/Min (0 - 20 L/MIN) 3 Vent Mode NC FiO2 (20 - 101 %) 32 Chemistry Plasma Sodium (136 - 145 mmol/L) 136 Plasma Potassium (3.5 - 5.1 mmol/L) 3.2 Plasma Chloride (98 - 107 mmol/L) 102 CO2 (Enzymatic) (21 - 32 mmol/L) 26 BUN (7 - 18 mg/dL) 4 Creatinine (0.6 - 1.3 mg/dL) 0.7 Est GFR ( Amer) (mL/min) >60 Est GFR (Non-Af Amer) (mL/min) >60 Glucose (70 - 110 mg/dL) 113 Lactic Acid (0.4 - 2.0 mmol/L) 1.0 Plasma Calcium (8.5 - 10.1 mg/dL) 7.9 Plasma Magnesium (1.8 - 2.4 mg/dL) 1.9 Procalcitonin (0 - 0.5 ng/mL) 0.6 Hematology WBC (4.5 - 11.5 K/uL) 21.4 RBC (4.50 - 5.90 M/uL) 4.17 Hgb (13.5 - 17.5 gm/dL) 12.4 Hct (41.0 - 53.0 %) 38.3 MCV (80 - 100 fL) 92 MCH (26 - 34 pg) 30 RDW (11.6 - 14.8 %) 12.8 Neut % (Auto) (50 - 75 %) 73.6 Lymph % (Auto) (25 - 40 %) 9.8 [place] % (Auto) (3 - 14 %) 16.2 Eos % (Auto) (0 - 4 %) 0 Baso % (Auto) (0 - 2 %) 0.4 Plt Count, EDTA (150 - 400 K/uL) 390 PUBS MCHC (31 - 37 g/dL) 32 Microbiology Date/Time Procedure - Status Source Growth 09/04 0230 MRSA Screen - RECD NOSE 09/03 1540 Blood Culture - RECD BLOOD 09/03 1428 Blood Culture - RECD BLOOD Imaging CTA THORAX WITH CONTRAST INDICATION: Shortness of breath times 1 week TECHNIQUE: 80 ml of Isovue 370 was injected intravenously and axial images were obtained of the entire thorax with 3D sagittal and coronal MIP reconstructions. COMPARISON: Chest x-ray 09/03/2016 FINDINGS: Somewhat suboptimal opacification of the pulmonary arteries with some breathing artifacts. There is decreased filling of some of the left lower lobe pulmonary artery branches, probably due to artifacts rather than small emboli. Dense consolidation in the posterior aspect of both upper lobes and superior segments of both lower lobes suspicious for aspiration pneumonia. There are also multiple rounded opacities, primarily in the right middle and right lower lobes suspicious for pulmonary emboli. No cavitating lesions. Tiny bilateral pleural effusions. Moderate anterior mediastinal, subcarinal and bilateral hilar adenopathy, reactive. Normal thoracic aorta without dissection or aneurysm. Normal heart size and there is no pericardial effusion. Left renal cysts. Bones are unremarkable. IMPRESSION: 1. Suboptimal opacification of some of the left lower lobe pulmonary branches, likely secondary to artifacts. Pulmonary emboli are less likely 2. Extensive bilateral infiltrates suggestive of aspiration pneumonia 3. Multiple rounded pulmonary opacities suspicious for septic emboli 4. Tiny bilateral pleural effusions Assessment and Plan Problem List 1. Sepsis Plan - Pts Sepsis is severe - Continue IV Normal Saline at current rate - Continue IV antibiotics, will discontinue IV Levaquin now and instead start him on IV Vancomycin and IV Zosyn - Recheck Lactic Acid now and again in AM - Blood cultures pending 2. Pneumonia Plan - Community acquired vs Aspiration - Present on admission - Continue IV Zosyn - Stop IV Levaquin now - Start IV Vancomycin now, pharmacy to dose - Continue supplemental O2 to keep SpO2 greater than 92% - Continue PRN breathing treatments - Check CBC with diff, Procalcitonin and CRP in AM - Check urine legionella antigen and strep pneumoniae antigen now 3. Acute respiratory failure with hypoxemia Plan - Continue supplemental O2 to keep SpO2 greater than 92% - See #1 and #2 4. Hypokalemia Plan - Rpelace with 40 mEq of IV KCl now - Recheck BMP in AM - Continue telemetry monitoring for now 5. Heroin abuse Plan - Continue IV Dilaudid PRN - I expect pt to start withdrawing here in hospital - Supportive care
[2016-09-05] VITALS (12 sets, daily range): BP systolic 92–134; BP diastolic 56–94
--- NOTE | 2016-09-05 08:01 | Progress Note ---
Subjective General Pt. feeling a little better. He is restless and still qite SOB. No problems with IV antibiotics. Physical Exam Vital Signs / I&Os Vital Signs Date Time Temp Pulse Resp B/P Pulse O2 O2 Flow FiO2 Ox Delivery Rate 09/05 0700 99.3 58 30 111/56 94 Mask 7.0 09/05 0609 85 37 125/70 94 Mask 7.0 09/05 0500 84 36 129/84 97 Mask 7.0 09/05 0400 88 32 114/94 93 Mask 7.0 09/05 0300 55 24 134/73 98 Mask 7.0 09/05 0251 99.7 09/05 0200 103 37 121/72 94 Mask 7.0 09/05 0100 107 36 117/63 97 Mask 7.0 09/05 0000 87 32 121/70 97 Mask 10.0 09/04 2300 99.7 96 32 142/93 94 Mask 10.0 09/04 2206 84 32 142/88 99 Mask 10.0 09/04 2115 83 33 121/65 98 Mask 10.0 09/04 2011 101 42 132/74 95 Mask 10.0 09/04 1957 Mask 10.0 09/04 1919 10.0 09/04 1901 89 42 133/81 99 Mask 10.0 09/04 1811 77 42 130/83 99 Mask 10.0 09/04 1705 102 30 131/80 98 Mask 10.0 09/04 1605 83 44 127/77 97 Nasal 4.0 Cannula 09/04 1506 83 31 120/69 98 Nasal 4.0 Cannula 09/04 1409 97.9 94 30 123/72 97 Nasal 4.0 Cannula 09/04 1300 94 36 119/67 96 Nasal 4.0 Cannula 09/04 1200 85 34 128/77 98 Nasal 4.0 Cannula 09/04 1100 4.0 09/04 1100 85 38 128/70 98 Nasal 4.0 Cannula 09/04 1000 99.5 84 33 153/85 95 Nasal 5.0 Cannula 09/04 0900 96 31 147/61 97 Nasal 5.0 Cannula 09/04 0800 Nasal 5.0 Cannula 09/04 0800 90 34 112/95 96 Nasal 5.0 Cannula 09/04 0753 86 40 143/77 96 Nasal 5.0 Cannula I&O 09/04 0800 09/04 1600 09/05 0000 Intake Total 2400 840 5213 Output Total 1300 2150 1850 Balance 1100 -1310 3363 General Appearance Oriented X3, Cooperative, mildly dyspneic HEENT Normal exam Lungs decreased breath sounds L and R. Scattered rales and rhonchi, no wheezes. Cardiovascular Regular rate and rhythm, Normal S1 and S2, No murmurs, gallops, rubs Abdomen Normal exam Extremities Normal exam Skin No Rashes Neurological Normal exam Psych/Mental Status Mental status normal, a little restless LAB Results Laboratory Tests 09/05 09/05 0530 0530 Chemistry Plasma Sodium (136 - 145 mmol/L) 136 Plasma Potassium (3.5 - 5.1 mmol/L) 3.2 Plasma Chloride (98 - 107 mmol/L) 102 CO2 (Enzymatic) (21 - 32 mmol/L) 25 BUN (7 - 18 mg/dL) 1 Creatinine (0.6 - 1.3 mg/dL) 0.8 Est GFR ( Amer) (mL/min) >60 Est GFR (Non-Af Amer) (mL/min) >60 Glucose (70 - 110 mg/dL) 139 Plasma Calcium (8.5 - 10.1 mg/dL) 7.8 C-Reactive Protein (0.0 - 0.9 mg/dL) 14.8 Procalcitonin (0 - 0.5 ng/mL) <0.5 Hematology WBC (4.5 - 11.5 K/uL) 23.4 RBC (4.50 - 5.90 M/uL) 4.12 Hgb (13.5 - 17.5 gm/dL) 12.4 Hct (41.0 - 53.0 %) 37.7 MCV (80 - 100 fL) 92 MCH (26 - 34 pg) 30 RDW (11.6 - 14.8 %) 13.2 Neut % (Auto) (50 - 75 %) 79.9 Lymph % (Auto) (25 - 40 %) 9.6 [place] % (Auto) (3 - 14 %) 10.1 Eos % (Auto) (0 - 4 %) 0.2 Baso % (Auto) (0 - 2 %) 0.2 Plt Count, EDTA (150 - 400 K/uL) 526 PUBS MCHC (31 - 37 g/dL) 33 Assessment and Plan Problem List 1. Pneumonia Plan contniue Opalo and Zosyn. Begin IS. 2. Sepsis Plan Cultures neg. BP stable. Continue current antibiotics. 3. Heroin abuse Plan will add Methadone 5 mg po q6h. 4. Hypokalemia Plan Add po K+ and IV K+
[2016-09-06] VITALS (7 sets, daily range): BP systolic 107–116; BP diastolic 57–80
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
[2016-09-07] VITALS (7 sets, daily range): BP systolic 84–105; BP diastolic 44–59
--- NOTE | 2016-09-07 09:08 | Progress Note ---
Subjective General Note Date: September 07, 2016 Admission Date: September 03, 2016 Hospital Day: 5 PCP: None Status: Inpatient Advanced Directive: FULL CODE Room: 301 Brief History: Patient is a 21-year-old male with significant past m illicit drug use- heroin/methamphetamine who presented to [facility] emergency department secondary to complaints cough, shortness of breath, malaise. ER evaluation was consistent with pneumonia, rule out sepsis, respiratory failure, illicit drug use- methamphetamine/heroin. Secondary to the above, patient admitted for further evaluation and treatment. For other history of present illness, past medical history, family history, social history, review systems, and admission physical examination please see the admission history and physical exam and ER visit note in the patient's medical record. Subjective: The patient states he is doing much better today. Shortness of breath is much improved. No fever or chills. Patient requests: None Medications and Allergies Medications Current Medications Sig/Emmie Start time Last Medication Dose Route Stop Time Status Admin Potassium Chloride 10 MEQ BIDWC 09/05 0900 AC 09/06 PO 1748 Methadone HCl 5 MG Q6HR 09/05 0745 AC 09/07 PO 0154 Vancomycin HCl 1,500 MG 1700,0100,0900 09/04 1700 AC 09/07 Sodium Chloride 500 ML IV 0000 Hydromorphone HCl 1 MG Q2H PRN 09/04 0730 AC 09/05 IV 0758 Hydromorphone HCl 0.5 MG Q2H PRN 09/04 0730 AC IV Piperacillin Sod/ 4.5 GM Q6HR 09/04 0000 AC 09/07 Tazobactam Sod IV 0520 Sodium Chloride 100 ML Acetaminophen 650 MG Q4H PRN 09/03 2245 AC 09/04 PO 0133 Allergies Coded Allergies: No Known Drug Allergy (03/03/06) Physical Exam Vital Signs / I&Os Vital Signs Date Time Temp Pulse Resp B/P Pulse O2 O2 Flow FiO2 Ox Delivery Rate 09/07 0739 2.0 09/07 0639 84/54 09/07 0636 98.4 81 20 95 Nasal 2.0 Cannula 09/07 0156 97.9 83 29 101/52 93 Nasal 2.0 Cannula 09/06 2204 98.2 87 26 109/61 98 Nasal 2.0 Cannula 09/06 1807 98.1 84 28 116/73 94 Nasal 2.0 Cannula 09/06 1418 98.1 90 28 116/57 92 Nasal 2.0 Cannula 09/06 1052 98.1 95 21 111/80 94 Nasal 4.0 Cannula 09/06 1034 Nasal 4.0 Cannula I&O 09/07 0000 09/06 1600 09/06 0800 Intake Total 1610 2550 2214 Output Total 500 2050 1400 Balance 1110 500 814 General Appearance Alert, Oriented X3, Cooperative, No acute distress Lungs Normal air movement, Scattered rhonchi, no wheezes Cardiovascular Regular rate and rhythm, Normal S1 and S2 Abdomen Normal bowel sounds, Soft, No tenderness Extremities No cyanosis, No clubbing, No edema Neurological Cranial nerves intact, No lateralizing signs Psych/Mental Status Mental status normal, Mood normal Assessment and Plan Problem List 1. Pneumonia Plan -status improved -Persistent leukocytosis but improved CRP, afebrile -Continue present therapy -check echocardiogram -Vancomycin/Zosyn. 2. Heroin abuse Plan -continue methadone -No symptoms of withdra -Encourage enrollment in drug treatment posthospitalization -Discharge planning to aid in placement in methadone treatment program 3. Hypokalemia Plan -resolved -Potassium 4.0 today. -Monitor 4. Acute respiratory failure with hypoxemia Plan -Resolved 5. Sepsis Plan -resolved Current status: Fair, improved Anticipated discharge date: Anticipated discharge in 1-2 days Anticipated discharge placement: Home Patient care time: Time spent in chart review, patient interview, physical exam, CPOE, and care documentation: 25 minutes Visit to patient today: 1 Complexity of care: Moderate E&M Codes Rounding: Inpt-Moderate/[id number]
[2016-09-08 02:10] VITALS: BP 92/54
[2016-09-08 06:58] VITALS: BP 93/53
--- NOTE | 2016-09-08 08:11 | Progress Note ---
Subjective General Note Date: September 08, 2016 Admission Date: September 03, 2016 Hospital Day: 6 PCP: None Status: Inpatient Advanced Directive: FULL CODE Room: 301 Brief History: Patient is a 21-year-old male with significant past m illicit drug use- heroin/methamphetamine who presented to [facility] emergency department secondary to complaints cough, shortness of breath, malaise. ER evaluation was consistent with pneumonia, rule out sepsis, respiratory failure, illicit drug use- methamphetamine/heroin. Secondary to the above, patient admitted for further evaluation and treatment. For other history of present illness, past medical history, family history, social history, review systems, and admission physical examination please see the admission history and physical exam and ER visit note in the patient's medical record. Subjective: The patient states he is doing well today. No chest discomfort. Shortness of breath much improved. Ambulating. Patient requests: No specific Medications and Allergies Medications Current Medications Sig/Emmie Start time Last Medication Dose Route Stop Time Status Admin Sodium Chloride 500 ML ASDIRECTED 09/07 1230 AC 09/07 IV 1651 Potassium Chloride 10 MEQ BIDWC 09/05 0900 AC 09/07 PO 1759 Methadone HCl 5 MG Q6HR 09/05 0745 AC 09/08 PO 0607 Vancomycin HCl 1,500 MG 1700,0100,0900 09/04 1700 AC 09/08 Sodium Chloride 500 ML IV 0017 Hydromorphone HCl 1 MG Q2H PRN 09/04 0730 AC 09/05 IV 0758 Hydromorphone HCl 0.5 MG Q2H PRN 09/04 0730 AC IV Piperacillin Sod/ 4.5 GM Q6HR 09/04 0000 AC 09/08 Tazobactam Sod IV 0607 Sodium Chloride 100 ML Acetaminophen 650 MG Q4H PRN 09/03 2245 AC 09/04 PO 0133 Allergies Coded Allergies: No Known Drug Allergy (03/03/06) Physical Exam Vital Signs / I&Os Vital Signs Date Time Temp Pulse Resp B/P Pulse O2 O2 Flow FiO2 Ox Delivery Rate 09/08 0658 99.0 87 18 93/53 93 Nasal 2.0 Cannula 09/08 0210 98.1 54 14 92/54 99 Nasal 2.0 Cannula 09/07 2222 98.6 82 16 97/54 97 Nasal 2.0 Cannula 09/07 193 Nasal Cannula 01/02 1923 98.6 86 22 93/53 91 Nasal 2.0 Cannula 09/07 1436 97.7 76 24 103/59 98 Nasal 2.0 Cannula 09/07 1030 97.7 89 16 105/58 92 Nasal 2.0 Cannula 09/07 0919 87/44 I&O 09/08 0000 09/07 1600 09/07 0800 Intake Total 720 1581 1670 Output Total 1875 1500 1800 Balance -1155 81 -130 General Appearance Alert, Oriented X3, Cooperative, No acute distress Lungs Scattered rhonchi otherwise clear to auscultation Cardiovascular Regular rate and rhythm, Normal S1 and S2 Abdomen Normal bowel sounds, Soft, No tenderness Extremities No cyanosis, No clubbing, No edema Neurological Cranial nerves intact, No lateralizing signs Psych/Mental Status Mental status normal, Mood normal LAB Results Laboratory Tests 09/08 09/07 0650 0920 Chemistry Plasma Sodium (136 - 145 mmol/L) 136 Plasma Potassium (3.5 - 5.1 mmol/L) 4.0 Plasma Chloride (98 - 107 mmol/L) 101 CO2 (Enzymatic) (21 - 32 mmol/L) 27 BUN (7 - 18 mg/dL) 6 Creatinine (0.6 - 1.3 mg/dL) 0.9 Est GFR ( Amer) (mL/min) >60 Est GFR (Non-Af Amer) (mL/min) >60 Glucose (70 - 110 mg/dL) 81 Plasma Calcium (8.5 - 10.1 mg/dL) 8.1 C-Reactive Protein (0.0 - 0.9 mg/dL) 4.5 Hematology WBC (4.5 - 11.5 K/uL) 21.4 24.9 RBC (4.50 - 5.90 M/uL) 4.43 4.34 Hgb (13.5 - 17.5 gm/dL) 13.3 13.1 Hct (41.0 - 53.0 %) 41.0 39.6 MCV (80 - 100 fL) 93 91 MCH (26 - 34 pg) 30 30 RDW (11.6 - 14.8 %) 13.3 13.0 Neut % (Auto) (50 - 75 %) Pending 79 Lymph % (Auto) (25 - 40 %) Pending 19 [place] % (Auto) (3 - 14 %) Pending 2 Eos % (Auto) (0 - 4 %) 0 Baso % (Auto) (0 - 2 %) 0 Band Neutrophils % (0 - 8 %) Pending 0 Metamyelocytes % (0 - 1 %) 0 Myelocytes (0 - 1 %) 0 Other Cell Type VARIANT LYMPHS NOTED Toxic Granulation 1+ Plt Count, EDTA (150 - 400 K/uL) 787 744 PUBS MCHC (31 - 37 g/dL) 32 33 Assessment and Plan Problem List 1. Pneumonia Plan -Status continues to improve -Afebrile -Normal Procalcitonin, CRP improved -Switch to oral medications in a.m. if afebrile and improved WBC -Possible discharge 1-2 days -Recheck chest x-ray today 2. Leukocytosis Plan -Improved -Continue present therapy -Possible discharge in a.m. 3. Sepsis Plan -Resolved -Blood cultures negative 2 -Afebrile, WBC improving 4. Acute respiratory failure with hypoxemia Plan -Resolved -Wean FiO2 today 5. Heroin abuse Plan -Patient with history of opiate abuse/dependence-heroin -Discharge planning to discuss enrollment in methadone treatment program today -Encourage participation of patient in drug treatment post hospitalization Current status: Fair, improved Anticipated discharge date: Anticipated discharge 1-2 days Anticipated discharge placement: Home Patient care time: Time spent in chart review, patient interview, physical exam, CPOE, and care documentation: 25 minutes Visit to patient today: 1 Complexity of care: Moderate E&M Codes Rounding: Inpt-Moderate/[id number]
[2016-09-08 10:26] VITALS: BP 95/52
--- NOTE | 2016-09-08 11:36 | DIAGNOSTIC IMAGING REPORT ---
PROCEDURE: XR CHEST 1 VIEW INDICATION: Pneumonia TECHNIQUE: Portable AP view 11:05 a.m. COMPARISON: 09/03/2016 FINDINGS: decrease in the bilateral diffuse infiltrates. The left lower lobe is now clear. IMPRESSION: 1. Decrease in the diffuse bilateral infiltrates.
[2016-09-08 14:49] VITALS: BP 90/46
--- NOTE | 2016-09-08 16:55 | DIAGNOSTIC IMAGING REPORT ---
REFERRING PHYSICIAN/PROVIDER: Dr. Blackwell CONSULTING DYE JIG OPERATOR: Jenelle Quintanilla MD PROCEDURE: Echocardiogram TECHNICAL QUALITY: Fair INDICATION: R/O endocarditis RHYTHM DURING PROCEDURE: NSR INTERPRETATIONS: LEFT VENTRICLE: Normal left ventricular size, wall thickness, wall motion and left ventricular systolic function. Ejection fraction is 60 - 65%. MITRAL VALVE: Mitral valve leaflets are normal. No regurgitation AORTIC VALVE: Aortic valve leaflets are normal. No regurgitation or stenosis TRICUSPID VALVE: Tricuspid valve leaflets are normal. Trace central regurgitation PULMONIC VALVE: Normal leaflets with mild regurgitation. No CHAMBERS: RV is normal in size but has mildly reduced function. GREAT VESSELS: IVC is small and demonstrates appropriate respiratory collapse. Estimated right atrial pressure is 5 mmHg. IMPRESSION: 1. Normal LV size, wall thickness, wall motion and left ventricular systolic function. Ejection fraction of 60 - 65%. 2. There is no evidence of vegetation 3. Right heart is mildly hypokinetic which could be due to obstructive sleep apnea, or pulmonary hypertension
--- NOTE | 2016-09-08 16:55 | DIAGNOSTIC IMAGING REPORT ---
REFERRING PHYSICIAN/PROVIDER: Dr. Blackwell CONSULTING CORPORATE DEVELOPMENT MANAGER: Jenelle Quintanilla MD PROCEDURE: Echocardiogram TECHNICAL QUALITY: Fair INDICATION: R/O endocarditis RHYTHM DURING PROCEDURE: NSR INTERPRETATIONS: LEFT VENTRICLE: Normal left ventricular size, wall thickness, wall motion and left ventricular systolic function. Ejection fraction is 60 - 65%. MITRAL VALVE: Mitral valve leaflets are normal. No regurgitation AORTIC VALVE: Aortic valve leaflets are normal. No regurgitation or stenosis TRICUSPID VALVE: Tricuspid valve leaflets are normal. Trace central regurgitation PULMONIC VALVE: Normal leaflets with mild regurgitation. No CHAMBERS: RV is normal in size but has mildly reduced function. GREAT VESSELS: IVC is small and demonstrates appropriate respiratory collapse. Estimated right atrial pressure is 5 mmHg. IMPRESSION: 1. Normal LV size, wall thickness, wall motion and left ventricular systolic function. Ejection fraction of 60 - 65%. 2. There is no evidence of vegetation 3. Right heart is mildly hypokinetic which could be due to obstructive sleep apnea, or pulmonary hypertension
[2016-09-08 18:42] VITALS: BP 108/56
[2016-09-08 22:23] VITALS: BP 84/40
[2016-09-09] VITALS (7 sets, daily range): BP systolic 88–108; BP diastolic 46–69
--- NOTE | 2016-09-09 08:13 | Progress Note ---
Subjective General Note Date: September 09, 2016 Admission Date: September 03, 2016 Hospital Day: 7 PCP: None Status: Inpatient Advanced Directive: FULL CODE Room: 301 Brief History: Patient is a 21-year-old male with significant past m illicit drug use- heroin/methamphetamine who presented to [facility] emergency department secondary to complaints cough, shortness of breath, malaise. ER evaluation was consistent with pneumonia, rule out sepsis, respiratory failure, illicit drug use- methamphetamine/heroin. Secondary to the above, patient admitted for further evaluation and treatment. For other history of present illness, past medical history, family history, social history, review systems, and admission physical examination please see the admission history and physical exam and ER visit note in the patient's medical record. Subjective: Status continues to improve. No significant pain. Shortness of breath improved. Persistent O2 requirement with exertion. Patient requests: None Medications and Allergies Medications Current Medications Sig/Emmie Start time Last Medication Dose Route Stop Time Status Admin Trimethoprim/ 1 TAB BID 09/09 0900 AC Sulfamethoxazole PO Levofloxacin 750 MG DAILY@0700 09/09 0800 AC PO Oxycodone HCl See Dose Q4H PRN 09/09 0745 AC Insts (1) PO Sodium Chloride 500 ML ASDIRECTED 09/07 1230 AC 09/08 IV 1705 Potassium Chloride 10 MEQ BIDWC 09/05 0900 AC 09/08 PO 1827 Acetaminophen 650 MG Q4H PRN 09/03 2245 AC 09/04 PO 0133 Dose Instructions: (1)Oxycodone HCl: 5 - 10 MG Allergies Coded Allergies: No Known Drug Allergy (03/03/06) Physical Exam Vital Signs / I&Os Vital Signs Date Time Temp Pulse Resp B/P Pulse O2 O2 Flow FiO2 Ox Delivery Rate 09/09 0647 82 12 93/50 94 Nasal 1.0 Cannula 09/09 021 88/46 09/09 021 98.2 79 16 88/48 93 Nasal 1.0 Cannula 09/08 2222 98.2 85 16 84/40 95 Nasal 1.0 Cannula 09/08 2053 2.0 09/08 2022 Nasal 1.0 Cannula 09/08 1841 98.6 85 20 108/56 94 Nasal 2.0 Cannula 09/08 1449 98.2 94 24 90/46 89 Nasal Cannula 09/08 1026 97.9 103 18 95/52 93 Nasal 2.0 Cannula I&O 09/09 0000 09/08 1600 09/08 0800 Intake Total 2742 1100 2273 Output Total 1999 750 2250 Balance 742 350 23 General Appearance Alert, Oriented X3, Cooperative, No acute distress Lungs Clear to auscultation Cardiovascular Regular rate and rhythm, Normal S1 and S2 Abdomen Normal bowel sounds, Soft, No tenderness Extremities No cyanosis, No clubbing, No edema Neurological Cranial nerves intact, No lateralizing signs Psych/Mental Status Mental status normal, Mood normal LAB Results Laboratory Tests 09/09 0510 Chemistry C-Reactive Protein (0.0 - 0.9 mg/dL) 1.9 Hematology WBC (4.5 - 11.5 K/uL) 17.8 RBC (4.50 - 5.90 M/uL) 4.19 Hgb (13.5 - 17.5 gm/dL) 12.5 Hct (41.0 - 53.0 %) 38.6 MCV (80 - 100 fL) 92 MCH (26 - 34 pg) 30 RDW (11.6 - 14.8 %) 13.0 Neut % (Auto) (50 - 75 %) 78 Lymph % (Auto) (25 - 40 %) 16 Burnett % (Auto) (3 - 14 %) 4 Eos % (Auto) (0 - 4 %) 2 Baso % (Auto) (0 - 2 %) 0 Band Neutrophils % (0 - 8 %) 0 Metamyelocytes % (0 - 1 %) 0 Myelocytes (0 - 1 %) 0 Other Cell Type 0 Plt Count, EDTA (150 - 400 K/uL) 895 PUBS MCHC (31 - 37 g/dL) 32 Assessment and Plan Problem List 1. Pneumonia Plan -Status continues to improve -Afebrile, WBC improved, CRP improved -Switch to oral medications in the form of Levaquin and Bactrim today -Monitor -Possible discharge in a.m. 2. Leukocytosis Plan -Improved -WBC improved to 17.8 from 21.4 yesterday 3. Acute respiratory failure with hypoxemia Plan -Resolved -Persistent hypoxemia with exertion -Wean oxygen as appropriate 4. Heroin abuse Plan -Referral to methadone treatment program -Patient placed on oxycodone secondary to interactions of methadone with Levaquin -Monitor 5. Hypokalemia Plan -Resolved -Recheck in a.m. Current status: Fair, improved Anticipated discharge date: Anticipated discharge in 24-48 hours Anticipated discharge placement: Home Patient care time: Time spent in chart review, patient interview, physical exam, CPOE, and care documentation: 25 minutes Visit to patient today: 1 Complexity of care: Moderate E&M Codes Rounding: Inpt-Moderate/[id number]
[2016-09-10 02:33] VITALS: BP 96/52
[2016-09-10 06:32] VITALS: BP 103/58
--- NOTE | 2016-09-10 08:04 | Discharge Summary ---
Discharge Summary Report Admit Date 09/03/16 Discharge Date 09/10/16 Admission Diagnosis 1. Bilateral pneumonia with sepsis 2. Illicit drug use-heroin/methamphetamine 3. Hypoxic respiratory failure Discharge Diagnosis 1. Bilateral pneumonia with sepsis 2. Illicit drug use-heroin/methamphetamine 3. Hypoxic respiratory failure Brief History Patient is a 21-year-old male with significant past m illicit drug use- heroin/methamphetamine who presented to [facility] emergency department secondary to complaints cough, shortness of breath, malaise. ER evaluation was consistent with pneumonia, rule out sepsis, respiratory failure, illicit drug use- methamphetamine/heroin. Secondary to the above, patient admitted for further evaluation and treatment. For other history of present illness, past medical history, family history, social history, review systems, and admission physical examination please see the admission history and physical exam and ER visit note in the patient's medical record. Hospital Course The following problems and their management were noted during the patient's hospitalization: 1. Bilateral pneumonia with sepsis The patient presented with findings of bilateral pneumonia with hypoxic respiratory failure and sepsis. History with IV followed by by mouth antimicrobials, IV fluids with slow improvement in his overall status. At the time of discharge his status was much improved. His white count was significantly improved but remains slightly elevated. He was afebrile for 24 hours prior to his discharge. He required no submental object in the time of discharge. He was discharged on Levaquin 750 mg by mouth daily and Bactrim DS one by mouth twice a day for an additional 5 days of therapy. He will follow up with his PCP next week 2. Illicit drug use-heroin/methamphetamine The patient has a history of illicit drug use heroin and methamphetamine. He was treated with replacement narcotics during his hospital stay. His symptoms are well controlled with use of oxycodone 5-10 mg by mouth every 6 hours when necessary. He was discharged to follow-up with [facility] methadone treatment program. He was not placed on methadone secondary to interactions with Levaquin at the time of his discharge. He was discharged on OxyContin 10 mg by mouth twice a day. 3. Hypoxic respiratory failure The patient was noted to have hypoxic respiratory failure in associated with his bilateral pneumonia and sepsis. This resolved during the patient's hospital stay. He required no supplemental option at the time of discharge. General Appearance Alert, Oriented X3, Cooperative, No acute distress Lungs Clear to auscultation, Normal air movement Cardiovascular Regular Rate, Normal S1, Normal S2 Abdomen Soft, No tenderness Neurological Grossly normal Psych/Mental Status Mental status NL, Mood NL Lab/Imaging Laboratory Tests 09/10 0525 Chemistry Plasma Potassium (3.5 - 5.1 mmol/L) 5.5 Hematology WBC (4.5 - 11.5 K/uL) 15.9 RBC (4.50 - 5.90 M/uL) 4.55 Hgb (13.5 - 17.5 gm/dL) 13.6 Hct (41.0 - 53.0 %) 42.4 MCV (80 - 100 fL) 93 MCH (26 - 34 pg) 30 RDW (11.6 - 14.8 %) 13.3 Neut % (Auto) (50 - 75 %) Pending Lymph % (Auto) (25 - 40 %) Pending [place] % (Auto) (3 - 14 %) Pending Band Neutrophils % (0 - 8 %) Pending Plt Count, EDTA (150 - 400 K/uL) 932 PUBS MCHC (31 - 37 g/dL) 32 Discharge Instructions/Meds For other recommendations regarding discharge diet, activity, followup, and discharge medications please see the patient's discharge instructions. Discharge condition: Fair, improved Greater than 30 min. was spent in the patient's discharge preparation including discharge interview and physical examination, progress note, discharge instructions, and discharge summary The patient was interviewed and examined on the day of discharge. E&M Codes Discharge: Inpt >30 min spent/[id number]
[2016-09-10] MEDS ORDERED: SMZ-TMP DS1 TAB PO (08:12)
[2016-09-10] MEDS ORDERED: OXYCODONE IR PO (08:12)
[2016-09-10] MEDS ORDERED: LEVOFLOXACIN250 MG PO (08:12)
[2016-09-10] MEDS ORDERED: OXYCONTIN CR10 MG PO (08:14)
--- NOTE | 2016-09-10 08:16 | Provider's Discharge Care Plan ---
Problem, Goal, Plan Problem List 1. Pneumonia Goals: Improve disease control, Prevent disease progress Instructions: Follow up as directed, Take meds as directed 2. Heroin abuse Goals: Improve disease control, Improved health/wellness, Increase independence, Prevent disease progress Instructions: Follow up as directed, Take meds as directed, No use of illicit drugs. Follow-up with methadone treatment program as recommended
== END 2016-09-10 10:50 | disposition home or self-care (01) | DRG 720 ==
LOC: ED SRH 13:11 → TRANS SRH 17:31 → CC SRH 19:44 → ACUTE3 SRH 09-09 00:12
PROVIDERS: ADMIT Family Medicine
PROC: 3E0234Z Introduction of Serum, Toxoid and Vaccine into Muscle, Percutaneous Approach (ICD-10-PCS; principal; 2016-09-04)
DX: A41.9 Sepsis, unspecified organism (principal); J18.9 Pneumonia, unspecified organism; R65.20 Severe sepsis without septic shock; J96.01 Acute respiratory failure with hypoxia; T59.811A Toxic effect of smoke, accidental (unintentional), initial encounter; J70.5 Respiratory conditions due to smoke inhalation; Z23 Encounter for immunization; F15.10 Other stimulant abuse, uncomplicated; F11.10 Opioid abuse, uncomplicated; F17.210 Nicotine dependence, cigarettes, uncomplicated; E87.6 Hypokalemia; Z90.81 Acquired absence of spleen